=== PATIENT | male | born 1975 | race African-American/Black ===

== ENCOUNTER 2017-03-07 10:27 | Emergency (ER) | payer SELFPAY ==
[~2017-03-07] VITALS: Ht 190.5 cm; Wt 130.0 kg
[2017-03-07 10:28] VITALS: BP 140/88; PULSE 92; RESP 20; TEMP 97.9; O2SAT 98
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
== END 2017-03-07 11:10 | disposition home or self-care (01) ==
LOC: NEPD 10:27
DX: S01.01XD Laceration without foreign body of scalp, subsequent encounter (principal); Y00.XXXD Assault by blunt object, subsequent encounter; Z48.02 Encounter for removal of sutures
CPT/HCPCS: 99281